=== PATIENT | female | born 1995 | race Caucasian/White ===

== ENCOUNTER 2018-06-14 16:31 | Emergency (ER) | payer OTHER ==
[2018-06-14 16:52] VITALS: BP 122/99
[2018-06-14] MEDS ORDERED: BUFFERED LIDOCAINE 10 ML SYRINGE SUBQ STA (16:54)
--- NOTE | 2018-06-14 16:56 | ED Physician Documentation ---
PD HPI LOWER EXT INJURY - Stated complaint Stated Complaint: R TOE PX/BUMP - Chief complaint Chief Complaint: Ext Problem - History obtained from History obtained from: Patient - History of Present Illness PD HPI LOW EXT INJURY LOCATION: Right, Toe (She has a painful ingrown toenail on the right great toe.) Review of Systems Constitutional: reports: Reviewed and negative GI: reports: Reviewed and negative : reports: Reviewed and negative PD PAST MEDICAL HISTORY - Present Medications Home Medications: Ambulatory Orders Medication Instructions Recorded Confirmed Cephalexin [Keflex] 500 mg PO QID #40 capsule 06/14/18 - Allergies Allergies/Adverse Reactions: Allergies Allergy/AdvReac Type Severity Reaction Status Date / Time No Known Drug Allergies Allergy Verified 06/14/18 16:45 PD ED PE NORMAL - Vitals Vital signs reviewed: Yes - General General: Alert and oriented X 3, No acute distress - Extremities Extremities: Other (Medial side of the right great toe is ingrown and Infected) - Neuro Neuro: Alert and oriented X 3, Normal speech Results - Vitals Vitals: Vital Signs - 24 hr 06/14/18 16:46 Temperature 36.4 C L Heart Rate 70 Respiratory 16 Rate Blood Pressure 122/99 H O2 Saturation 100 Oxygen O2 Source Room air Procedures - General procedure General procedure: The right great toe was anesthetized with buffered lidocaine using a digital block in standard fashion and then the medial 1/5 the toe nail was removed with electrocautery and blunt dissection with good effect. PD MEDICAL DECISION MAKING - Sepsis Event Vital Signs: Vital Signs - 24 hr 06/14/18 16:46 Temperature 36.4 C L Heart Rate 70 Respiratory 16 Rate Blood Pressure 122/99 H O2 Saturation 100 Oxygen O2 Source Room air Departure - Departure Disposition: 01 Home, Self Care Clinical Impression: Ingrown toenail with infection Condition: Good Record reviewed to determine appropriate education?: Yes Instructions: ED Ingrown Toenail Excised Prescriptions: Cephalexin [Keflex] 500 mg PO QID #40 capsule Comments: Your blood pressure was elevated today on check into the emergency department. This does not mean that you have hypertension, it is a common phenomenon to come to the emergency department and have elevated blood pressure. I recommend that you see your primary care physician within the week to have it rechecked when you are feeling better.
== END 2018-06-14 17:50 | disposition home or self-care (01) ==
LOC: ED 16:31
DX: L60.0 Ingrowing nail (principal); L03.031 Cellulitis of right toe; R03.0 Elevated blood-pressure reading, without diagnosis of hypertension
CPT/HCPCS: 11730; 99283

== ENCOUNTER 2023-09-15 17:38 | Emergency (ER) | payer OTHER ==
[2023-09-15 18:01] VITALS: BP 140/81; O2SAT 99
--- NOTE | 2023-09-15 18:50 | ED Physician Documentation ---
History of Present Illness - Stated complaint Stated Complaint: LT FOOT PX - Chief complaint Chief Complaint: Ext Problem - History obtained from History obtained from: Patient - History of Present Illness Timing: How many weeks ago (several weeks) Pain level max: 3 Pain level now: 0 - Additonal information Additional information: 28-year-old female with a left great toe ingrown toenail, she states it started hurting tonight and when she squeezed that there was a small amount of pus. The pain has since resolved. No redness. No swelling. No current drainage. No fevers. No chills. Nothing makes it better or worse currently Review of Systems Constitutional: denies: Fever : denies: Now EGA PD PAST MEDICAL HISTORY - Past Medical History Past Medical History: No - Past Surgical History Past Surgical History: No - Present Medications Home Medications: Ambulatory Orders Medication Instructions Recorded Confirmed cephALEXin [Keflex] 500 mg PO QID #40 capsule 06/14/18 - Allergies Allergies/Adverse Reactions: Allergies Allergy/AdvReac Type Severity Reaction Status Date / Time No Known Drug Allergies Allergy Verified 06/14/18 16:45 - Social History Does the pt smoke?: No Smoking Status: Never smoker PD ED PE NORMAL - Vitals Vital signs reviewed: Yes - General General: Alert and oriented X 3, No acute distress - HEENT HEENT: Moist mucous membranes - Derm Derm: Warm and dry - Extremities Extremities: Other (Patient with a mild ingrown toenail of the left great toe. Medial aspect. No redness, swelling or drainage. Neurovascular intact.) - Neuro Neuro: Alert and oriented X 3 - Psych Psych: Normal mood, Normal affect Results - Vitals Vitals: Vital Signs - 24 hr 09/15/23 17:52 Temperature 36 C L Heart Rate 72 Respiratory 16 Rate Blood Pressure 140/81 H O2 Saturation 99 Oxygen O2 Source Room air PD Medical Decision Making - ED course Complexity details: considered differential, d/w patient ED course: 28-year-old female with what sounds like a paronychia that spontaneously drained prior to arrival. No indication for drainage here. No tenderness, redness or swelling currently. We did discuss removal of the ingrown toenail but she will follow-up with podiatry instead of having it removed here tonight. Patient will perform warm water soaks at home and follow-up with her PCP or podiatry. Patient counseled regarding signs and symptoms for which I believe and urgent re-evaluation would be necessary. Patient with good understanding of and agreement to plan and is comfortable going home at this time This document was made in part using voice recognition software. While efforts are made to proofread this document, sound alike and grammatical errors may occur. Departure - Departure Disposition: Home, Self Care Clinical Impression: Paronychia, Ingrown toenail Condition: Good Instructions: Ingrown Toenails Follow-Up: Amari Farrell DPM [Physician No Access] - Wilma Dietz DPM [Provider Admit Priv/Credential] - Comments: You can soak the affected toe 2-3 times per day for approximately 10 to 15 minutes at a time and warm water this will help to loosen the toenail. He can follow-up for removal with podiatry. Please call for an appointment. Please return if you worsen. Forms: PCP List Discharge Date/Time: 09/15/23 18:58
== END 2023-09-15 18:58 | disposition home or self-care (01) ==
LOC: ED 17:38
DX: L03.032 Cellulitis of left toe (principal); L60.0 Ingrowing nail
CPT/HCPCS: 99282; 99283